=== PATIENT | male | born 1980 | race Caucasian/White ===

== ENCOUNTER → 2019-10-01 | Day surgery (SDC) | payer OTHER ==
[~2019-10-01] MED LIST: Diphtheria,Pertussis(Acell),Tetanus Vaccine 0.5 ML Syringe IM ONE; Etomidate 2 MG/ML 20 ML SDV IVPUSH ONE; HYDROmorphone 0.5 MG/0.5 ML Syringe IVPUSH PRN; HYDROmorphone 0.5 MG/0.5 ML Syringe ONE; Midazolam 1 MG/ML 2 ML SDV ONE; Midazolam 1 MG/ML 5 ML SDV ONE; Ondansetron 4 MG/2 ML SDV IVPUSH PRN; Ondansetron 4 MG/2 ML SDV ONE; Phenylephrine 1 MG in Sodium Chloride 0.9% 10 ML IV SCH; Phenylephrine/Normal Saline 100 MCG/ML 10 ML Syringe ONE; Rocuronium 50 MG/5 ML Vial ONE; Sodium Chloride 0.9% 1,000 ML ONE; Sodium Chloride 0.9% 2,000 ML ONE; Succinylcholine/Normal Saline 100 MG/5 ML Syringe ONE; ceFAZolin 1 GM Vial ONE; ePHEDrine 50 MG/ML SDV IVPUSH PRN; ePHEDrine/Normal Saline 25 MG/5 ML Syringe ONE; fentaNYL 100 MCG/2 ML SDV IVPUSH PRN
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
--- NOTE | 2019-10-01 04:43 | PCM.POSTAN ---
POST ANESTHESIA ASSESSMENT - MENTAL STATUS Mental Status: Other (Intubated: placed on ventilator in PACU/Ventilator settings: FIO2:80%, RATE:10, Tidal Volume: 600, Peep: +5) - VITAL SIGNS Vital Signs: Last Vital Signs Temp 36.3 C 10/01/19 04:40 Pulse Resp 10 L 10/01/19 04:40 BP 113/82 10/01/19 04:35 Pulse Ox 100 10/01/19 04:40 - RESPIRATORY Respiratory Status: Airway Patent, O2 Saturation Stable, Supplemental Oxygen - CARDIOVASCULAR CV Status: Pulse Rate WNL, Blood Pressure Stable - GASTROINTESTINAL GI Status: No Symptoms - POST OP HYDRATION Hydration Status: Adequate & Stable
--- NOTE | 2019-10-01 04:44 | PCM48HPAN ---
Post Anesthesia Note - EVALUATION WITHIN 48HRS OF ANESTHETIC Vital Signs in Normal Range: Yes Patient Participated in Evaluation: No Respiratory Function Stable: No Airway Patent: No Cardiovascular Function Stable: No Hydration Status Stable: No Pain Control Satisfactory: No Nausea and Vomiting Control Satisfactory: No Mental Status Recovered: No Vital Signs: Last Vital Signs Temp 36.3 C 10/01/19 04:40 Pulse Resp 10 L 10/01/19 04:40 BP 113/82 10/01/19 04:35 Pulse Ox 100 10/01/19 04:40 - COMMENTS/OBSERVATIONS Free Text/Narrative:: [facility] Flight Crew present for transport to [facility]. Report given to Flight crew, and also to [facility] ER nurse.
[2019-10-01 04:54] VITALS: BP 127/81
== END ==
LOC: JD.ED 00:08 → JD.SDS 00:44 → JD.ED 03:06 → JD.SDS 03:11 → JD.ED 05:00
PROVIDERS: ATTEND Surgery
DX: Z53.8 Procedure and treatment not carried out for other reasons (principal)
CPT/HCPCS: 36600; 82803; 90471; 90715; 94002; J0330; J0690; J1170; J2250; J2370; J2405; J3490; J7030; J7050; 00840

== ENCOUNTER 2020-01-18 18:58 | Emergency (ER) | payer MEDICAID ==
[2020-01-18 19:03] VITALS: BP 141/96; PULSE 104
[2020-01-18] MEDS ORDERED: Ondansetron 4 MG/2 ML SDV IVPUSH ONE (19:17)
[2020-01-18] MEDS ORDERED: Diatrizoate Meglumine/Diatrizoate Sodium 37% 120 ML Bottle PO ONE (19:24)
[2020-01-18] MEDS ORDERED: Iopamidol 612 MG/ML 100 ML Bottle IVPUSH ONE (19:24)
[2020-01-18] MEDS ORDERED: Sodium Chloride 0.9% 10 ML Syringe FLUSH PRN (19:24)
[2020-01-18] MEDS ORDERED: Sodium Chloride 0.9% 1,000 ML IV SCH (19:30)
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
--- NOTE | 2020-01-18 21:20 | CT ---
CT abdomen and pelvis Technique: Multiple axial sections were obtained from above the dome of the diaphragm inferiorly through the pubic symphysis. Intravenous contrast was utilized. Oral contrast was also given. Delayed images were obtained through the bladder. Findings: Prior right-sided colectomy appears to be present. Gas dilated transverse and left colon is seen most likely representing ileus. Atelectasis is seen within both lung bases. Small amount of fluid is seen around the liver as well as more focal fluid collection within the right upper abdomen slightly inferior to the liver measuring 8.0 cm x 3.9 cm. Difficult to exclude an abscess as the etiology of this fluid collection. Increased density is noted in area of previous ostomy and adjacent abdominal wall presumably postsurgical in origin No additional fluid collections are seen. No additional inflammatory change is appreciated. Liver contains no focal abnormality. Gallbladder contains no calcified gallstones. Spleen appears normal in size. Adrenal glands show no nodule. Kidneys show symmetric contrast enhancement without hydronephrosis or mass. Pancreas is within normal limits. Aorta shows no aneurysm. No retroperitoneal adenopathy is seen. Delayed images shows no contrast within the distal ureters or bladder suggesting the possibility of dehydration. Bone window settings were reviewed which shows no acute osseous finding. Impression: 1. Prior right-sided colectomy. 2. Gas dilated transverse and left colon most likely representing an ileus. 3. Small amount of fluid around the liver as well as additional fluid pocket within the right upper abdomen inferior to the liver. Measurements as noted above. This finding is suspicious for abscess. 4. Atelectasis within both lung bases. 5. Increased density within the subcutaneous fat and abdominal wall in area of previous ileostomy most likely postsurgical in in etiology. 6. Findings suggesting dehydration as noted above. Diagnostic code #3 This report was dictated in MDT
[2020-01-18] MEDS ORDERED: Piperacillin/Tazobactam 4.5 GM in Sodium Chloride 0.9% 100 ML IV ONE (21:53)
== END 2020-01-18 22:31 ==
LOC: JD.ED 18:58
DX: T81.41XA Infection following a procedure, superficial incisional surgical site, initial encounter (principal); L02.211 Cutaneous abscess of abdominal wall; F17.210 Nicotine dependence, cigarettes, uncomplicated
CPT/HCPCS: 36415; 74177; 80053; 83690; 85007; 85027; 96361; 96365; 96375; 99285; J2405; J2543; J7030; J7050; Q9963; Q9967

== ENCOUNTER 2020-01-27 21:18 | Emergency (ER) | payer MEDICAID ==
[2020-01-27 21:39] VITALS: BP 137/78; PULSE 98
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
== END 2020-01-27 22:20 | disposition home or self-care (01) ==
LOC: JD.ED 21:18
DX: T81.43XA Infection following a procedure, organ and space surgical site, initial encounter (principal); F17.210 Nicotine dependence, cigarettes, uncomplicated; Z98.890 Other specified postprocedural states; Z79.899 Other long term (current) drug therapy
CPT/HCPCS: 99282; 99283

== ENCOUNTER 2020-10-23 14:23 | Emergency (ER) | payer MEDICAID ==
[2020-10-23 14:31] VITALS: BP 136/114; PULSE 123
[2020-10-23] MEDS ORDERED: LORazepam 1 MG Tab PO ONE (15:00)
[2020-10-23] MEDS ORDERED: Lidocaine 1% 10 ML MDV INJECT ONE (15:00)
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
[2020-10-23] MEDS ORDERED: Ibuprofen 800 MG Tab PO ONE (17:06)
== END 2020-10-23 17:15 | disposition home or self-care (01) ==
LOC: JD.ED 14:23 → SUPCPDRO 14:23 → JD.ED 17:15
DX: S06.0X0A Concussion without loss of consciousness, initial encounter (principal); Z72.0 Tobacco use; W22.8XXA Striking against or struck by other objects, initial encounter
CPT/HCPCS: 12002; 99284; A9270; 99283

== ENCOUNTER 2021-10-22 15:43 | Emergency (ER) | payer MEDICAID ==
[2021-10-22 16:22] VITALS: BP 125/87; PULSE 67
[2021-10-22] MEDS ORDERED: HYDROmorphone 0.5 MG/0.5 ML Syringe IVPUSH ONE (16:36)
[2021-10-22] MEDS ORDERED: Metoclopramide 10 MG/2 ML SDV IVPUSH ONE (16:36)
[2021-10-22] MEDS ORDERED: Dextrose 5%-0.9% NaCl 1,000 ML IV SCH (16:45)
[2021-10-22] MEDS ORDERED: Iopamidol 612 MG/ML 100 ML Bottle IVPUSH ONE (16:49)
[2021-10-22] MEDS ORDERED: Pantoprazole 40 MG Vial IVPUSH ONE (17:08)
[2021-10-22] MEDS ORDERED: Magnesium Citrate Solution 296 ML Bottle PO ONE (18:31)
[2021-10-22] MEDS ORDERED: Sodium Chloride 0.9% 1,000 ML IV SCH (18:45)
[2021-10-22 21:22] LABS: C. TRACHOMATIS BY PCR NOT DETECTED; N. GONORRHOEAE BY PCR NOT DETECTED
[2021-10-23] MEDS ORDERED: hydrOXYzine HCl 50 MG Tab PO ONE (18:33)
== END 2021-10-22 20:30 ==
LOC: JD.ED 15:43
DX: K59.01 Slow transit constipation (principal); K43.9 Ventral hernia without obstruction or gangrene; F15.23 Other stimulant dependence with withdrawal; Z20.822 Contact with and (suspected) exposure to COVID-19; Z72.0 Tobacco use
CPT/HCPCS: 36415; 71045; 74177; 80053; 80306; 81001; 83690; 83735; 85025; 85610; 86140; 87491; 87591; 96374; 96375; 99284; A9270; C9113; J1170; J2765; J7030; J7042; Q9967; 99285

== ENCOUNTER 2021-11-16 16:47 | Emergency (ER) | payer MEDICAID ==
[2021-11-16 17:13] VITALS: PULSE 79
[2021-11-16] MEDS ORDERED: Ketorolac 30 MG/ML SDV IM ONE (17:45)
[2021-11-16 18:01] LABS: STREP A BY PCR DETECTED (NOT DETECT)
[2021-11-16 18:14] LABS: CORONAVIRUS COVID-19 NAA NEGATIVE (NEGATIVE)
[2021-11-16] MEDS ORDERED: cefTRIAXone 250 MG, Lidocaine 1% 0.5 ML IM ONE ×2 (18:24)
[2021-11-16] MEDS ORDERED: Azithromycin 250 MG Tab PO ONE (18:24)
[2021-11-16] MEDS ORDERED: Penicillin G Benzathine 1,200,000 Units/2 ML Syringe IM ONE (18:24)
[2021-11-16 19:08] LABS: C. TRACHOMATIS BY PCR NOT DETECTED; N. GONORRHOEAE BY PCR NOT DETECTED
== END 2021-11-16 18:51 | disposition home or self-care (01) ==
LOC: JD.ED 16:47
DX: J02.0 Streptococcal pharyngitis (principal); Z20.822 Contact with and (suspected) exposure to COVID-19; Z20.2 Contact with and (suspected) exposure to infections with a predominantly sexual mode of transmission
CPT/HCPCS: 0240U; 36415; 80053; 85025; 86308; 87491; 87591; 87651; 96372; 99283; A9270; J0561; J0696; J1885; 99284

== ENCOUNTER 2022-02-28 13:24 | Emergency (ER) | payer MEDICAID ==
[2022-02-28 14:13] VITALS: BP 133/96; PULSE 81
[2022-02-28] MEDS ORDERED: Sodium Chloride 0.9% 10 ML Syringe FLUSH PRN (14:17)
[2022-02-28] MEDS ORDERED: Ketorolac 30 MG/ML SDV IVPUSH ONE (14:21)
[2022-02-28] MEDS ORDERED: Amoxicillin/Clavulanate K 875-125 MG Tab PO ONE (15:38)
== END 2022-02-28 16:32 | disposition home or self-care (01) ==
LOC: JD.ED 13:24
DX: S61.451A Open bite of right hand, initial encounter (principal); F17.210 Nicotine dependence, cigarettes, uncomplicated; W54.0XXA Bitten by dog, initial encounter
CPT/HCPCS: 36415; 80053; 83605; 85025; 86140; 87040; 96374; 99283; A9270; J1885; J3490

== ENCOUNTER 2022-03-02 01:09 | Emergency (ER) | payer MEDICAID ==
[2022-03-02] MEDS ORDERED: Morphine 4 MG/ML Syringe IM ONE (02:31)
[2022-03-02 02:39] LABS: ESTIMATED GFR 88 mL/min (>60)
[2022-03-02] MEDS ORDERED: Morphine 4 MG/ML Syringe ONE ×2 (02:41→07:25)
[2022-03-02] MEDS ORDERED: Sodium Chloride 0.9% 10 ML Syringe FLUSH PRN (04:48)
[2022-03-02] MEDS ORDERED: Iopamidol 612 MG/ML 100 ML Bottle IVPUSH ONE (04:48)
[2022-03-02] MEDS ORDERED: Piperacillin/Tazobactam 4.5 GM in Sodium Chloride 0.9% 100 ML IV ONE (06:26)
[2022-03-02] MEDS ORDERED: Piperacillin/Tazobactam 4.5 GM AdvVial ONE (06:41)
[2022-03-02] MEDS ORDERED: Sodium Chloride 0.9% 100 ML ONE (06:41)
[2022-03-02] MEDS ORDERED: Morphine 4 MG/ML Syringe IVPUSH ONE ×2 (07:00→17:42)
[2022-03-02] MEDS ORDERED: Ketorolac 15 MG/ML SDV IVPUSH ONE (09:31)
[2022-03-02] MEDS ORDERED: Ketorolac 15 MG/ML SDV ONE (09:37)
[2022-03-02] MEDS ORDERED: Piperacillin/Tazobactam 3.375 GM in Sodium Chloride 0.9% 100 ML IV STA (12:42)
[2022-03-02 18:54] VITALS: BP 113/79; PULSE 67
== END 2022-03-02 18:20 ==
LOC: JD.ED 01:09
DX: L03.113 Cellulitis of right upper limb (principal); F17.210 Nicotine dependence, cigarettes, uncomplicated
CPT/HCPCS: 36415; 73130; 73201; 80053; 85025; 86140; 87070; 87205; 96365; 96366; 96372; 96375; 96376; 99285; J1885; J2270; J2543; J3490; Q9967

== ENCOUNTER 2025-05-30 18:25 | Emergency (ER) | payer MEDICAID ==
[2025-05-30] MEDS: Amoxicillin/Clavulanate K 875-125 MG Tab PO ONE (19:19)
[2025-05-30 19:21] VITALS: BP 151/122; PULSE 96
== END 2025-05-30 19:28 | disposition home or self-care (01) ==
LOC: JD.ED 18:25
DX: S02.5XXB Fracture of tooth (traumatic), initial encounter for open fracture (principal); Z79.899 Other long term (current) drug therapy; F17.200 Nicotine dependence, unspecified, uncomplicated; X58.XXXA Exposure to other specified factors, initial encounter
CPT/HCPCS: 99282; A9270; 99283